=== PATIENT | female | born 1945 | race Caucasian/White ===

== ENCOUNTER 2018-09-08 05:38 | Day surgery (SDC) | payer MEDICARE ==
[2018-09-06 15:30] VITALS: BP 180/85
[2018-09-06 15:50] LABS: BASOPHILS % (AUTO) 0.7 % (0.0-5.0); EOSINOPHILS % (AUTO) 1.2 % (0.0-8.0); HEMATOCRIT 42.3 % (36-48); LYMPHOCYTES % (AUTO) 17.9 % (21.0-51.0); MEAN CORPUSCULAR HEMOGLOBIN 31.4 pg (27.0-33.0); MEAN CORPUSCULAR HGB CONC 33.1 g/dL (32.0-36.0); MEAN CORPUSCULAR VOLUME 94.9 fL (79-99); MONOCYTES % (AUTO) 8.3 % (3.0-13.0); NEUTROPHILS % (AUTO) 71.9 % (40.0-77.0); PLATELET COUNT (AUTO) 283 K/uL (130-400); RED BLOOD CELL COUNT(AUTO) 4.45 MIL/uL (4.00-5.50); WHITE BLOOD COUNT (AUTO) 7.8 K/uL (4.8-10.8)
[2018-09-06 15:58] LABS: CREATININE 0.9 mg/dL (0.5-1.5); POTASSIUM 4.2 mmol/L (3.5-5.1)
[2018-09-06 16:02] LABS: INR 0.95 (0.85-1.15); PARTIAL THROMBOPLASTIN TIME 26.6 SEC (26.3-35.5)
[2018-09-06 17:06] LABS: BILIRUBIN,URINE Negative (NEGATIVE); COLOR,URINE Yellow (YELLOW); GLUCOSE, URINE (UA) Negative (NEGATIVE); KETONES,URINE Negative (NEGATIVE); LEUKOCYTE ESTERASE ,URINE Small (NEGATIVE); NITRATE,URINE Negative (NEGATIVE); OCCULT BLOOD,URINE Negative (NEGATIVE); PROTEIN,URINE Negative (NEGATIVE); UROBILINOGEN,URINE 0.2 mg/dL (0.2-1.0)
[2018-09-06 17:08] LABS: APPEARANCE,URINE SLIGHTLY CLOUDY (CLEAR)
[2018-09-06 17:33] LABS: RBC,URINE 0-1 /HPF (0-1)
[2018-09-06 17:34] LABS: BACTERIA,URINE Few /HPF (None Seen); SQUAMOUS EPITHELIAL CELL,UR Few /HPF (0-2)
--- NOTE | 2018-09-07 12:13 | NUR ---
ABNORMAL LABS REPORTED ABNORMAL UA AND CHEST XRAY TO SOTERO VERGARA NP. NO NEW ORDERS GIVEN.
[2018-09-08] VITALS (9 sets, daily range): BP systolic 114–142; BP diastolic 52–75
[~2018-09-08] VITALS: Ht 157.5 cm; Wt 67.9 kg
[~2018-09-08 05:38] MED LIST: ASPI-1012 PO; CALCIUM PO; LOSA100T58 PO; LOVA20TA3 PO
[2018-09-08] MEDS ORDERED: SODIUM CHLORIDE 0.9% 1000ML 1,000 ML IV ONE (06:14)
[2018-09-08] MEDS ORDERED: IOHEXOL-350 75 ML VIAL IV ONE (07:06)
[2018-09-08] MEDS ORDERED: HEPARIN SODIUM 1000UNIT/ML 10ML VIAL ONE (07:06)
[2018-09-08] MEDS ORDERED: NITROGLYCERIN 5 MG/ML 10 ML VIAL IV ONE (07:06)
[2018-09-08] MEDS ORDERED: LIDOCAINE HCL 2% 20ML ONE (07:06)
[2018-09-08] MEDS ORDERED: IOHEXOL-350 50ML VIAL IV ONE (07:06)
--- NOTE | 2018-09-08 07:23 | NUR ---
PT TRANSFERRED TO [facility] IN A BED BY PAULINA PRADO. PT IS STABLE, NO C/O CHEST PAIN NO DISTRESS. PERSONAL BELONGINGS IN ROOM WITH FAMILY FRIEND.
[2018-09-08] MEDS ORDERED: MIDAZOLAM HCL 1 MG/ML 2ML VIAL ONE (07:42)
[2018-09-08] MEDS ORDERED: SODIUM CHLORIDE 0.9% 1000ML 1,000 ML IV SCH (08:00)
--- NOTE | 2018-09-08 12:07 | NUR ---
PT IS AAOX3, NO C/O PAIN TO RT GROIN, DRESSING TO RT GROIN IS D/I, NO HEMATOMA OR BLEEDING. POST CARE INSTRUCTIONS GIVEN TO PT AND FRIEND MRS. PERSON, BOTH VERBALIZED UNDERSTANDING. FOLLOW UP APPOINTMENT TIME AND PERSONAL BELONGINGS GIVEN TO PT. PT STATES MRS. PERSON, FAMILY FRIEND WILL STAY WITH PT AT HOME TONIGHT TO MONITOR HER. PT PLACED IN WHEELCHAIR AND DRIVEN HOME.
[2018-09-08] MEDS ORDERED: LOSARTAN 100 MG TABLET PO SCH (21:00)
[2018-09-08] MEDS ORDERED: ASPIRIN 325 MG TABLET PO SCH (21:00)
[2018-09-08] MEDS ORDERED: ATORVASTATIN CALCIUM 10 MG TABLET PO SCH (21:00)
== END 2018-09-08 12:13 | disposition home or self-care (01) ==
LOC: DAH 05:38
PROVIDERS: ATTEND Internal Medicine Cardiovascular Disease
DX: I20.8 Other forms of angina pectoris (principal); I10 Essential (primary) hypertension; E78.5 Hyperlipidemia, unspecified; Z82.49 Family history of ischemic heart disease and other diseases of the circulatory system; Z79.899 Other long term (current) drug therapy; R00.1 Bradycardia, unspecified; I21.3 ST elevation (STEMI) myocardial infarction of unspecified site
CPT/HCPCS: 36415; 71045; 80048; 81001; 85025; 85610; 85730; 93005; 93458; A4606; C1760; C1894; J1644; J2250; J3490 ×2; J7030; Q9967 ×2; 99156; 99157

== ENCOUNTER 2018-09-10 13:01 | Emergency (ER) | payer MEDICARE | END 2018-09-10 14:51 | disposition home or self-care (01) | LOC: EDH 13:01 | DX: I97.630 Postprocedural hematoma of a circulatory system organ or structure following a cardiac catheterization (principal); I10 Essential (primary) hypertension; E78.5 Hyperlipidemia, unspecified; Z98.62 Peripheral vascular angioplasty status; Z88.2 Allergy status to sulfonamides; Z86.73 Personal history of transient ischemic attack (TIA), and cerebral infarction without residual deficits; Z87.891 Personal history of nicotine dependence | CPT/HCPCS: 76882 ==